=== PATIENT | female | born 1995 | race Caucasian/White ===

== ENCOUNTER 2019-12-11 12:54 | Emergency (ER) | payer OTHER, MEDICAID ==
[~2019-12-11] VITALS: Ht 170.2 cm; Wt 65.8 kg
[2019-12-11 13:11] VITALS: BP_SYST 115
--- NOTE | 2019-12-11 14:10 | NUR ---
BROUGHT BACK TO BED #4 AND TRIAGED. REPORT GIVEN TO KEN
--- NOTE | 2019-12-11 15:15 | NUR ---
ER Dr. ARCE at bedside examining patient.
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
[2019-12-11 17:00] VITALS: BP_SYST 120
--- NOTE | 2019-12-11 17:00 | NUR ---
Patient given written and verbal discharge instructions and verbalizes understanding. ER MD discussed with patient the results and treatment provided. Patient in stable condition. ID arm band removed. Rx of Naprosyn given. Patient educated on pain management and to follow up with PMD. Pain Scale 8/10. Opportunity for questions provided and answered.
== END 2019-12-11 17:00 | disposition home or self-care (01) ==
LOC: SED 12:54
DX: S13.4XXA Sprain of ligaments of cervical spine, initial encounter (principal); V89.2XXA Person injured in unspecified motor-vehicle accident, traffic, initial encounter; Y93.89 Activity, other specified; Y92.413 State road as the place of occurrence of the external cause; Y99.8 Other external cause status; S93.431A Sprain of tibiofibular ligament of right ankle, initial encounter; S93.691A Other sprain of right foot, initial encounter
CPT/HCPCS: 72040-TC; 72170-TC; 73590-TC; 99283